=== PATIENT | female | born 2000 | race Caucasian/White ===

== ENCOUNTER 2021-11-24 18:00 | Emergency (ER) | payer BC, MEDICAID ==
[2021-11-24] MEDS ORDERED: Ondansetron 4 MG Tab.DIS PO ONE (20:04)
[2021-11-24] MEDS ORDERED: Sodium Chloride 0.9% 1,000 ML IV ONE (20:08)
[2021-11-24] MEDS ORDERED: Ketorolac 30 MG/ML SDV IVPUSH ONE (20:09)
[2021-11-24 20:49] LABS: BLOOD UREA NITROGEN,BUN 10 mg/dL (7.0-18.0); CARBON DIOXIDE,CO2 27.1 mmol/L (21.0-32.0); CHLORIDE,CL 101 mmol/L (98-107); GLUCOSE RANDOM 130 mg/dL (74-106); POTASSIUM,K 3.9 mmol/L (3.5-5.1); SODIUM,NA 138 mmol/L (136-145)
[2021-11-24] MEDS ORDERED: Nitrofurantoin Monohydrate/Macrocrystalline 100 MG Cap PO ONE (21:01)
== END 2021-11-24 22:03 | disposition home or self-care (01) ==
LOC: MW.ED 18:00
DX: U07.1 COVID-19 (principal); K52.9 Noninfective gastroenteritis and colitis, unspecified; N30.01 Acute cystitis with hematuria
CPT/HCPCS: 36415; 80053; 81001; 81025; 82550; 85025; 87086; 87804; 96374; 99284; A9270; J1885; J7030